=== PATIENT | male | born 1975 | race Native Hawaiian/Other Pacific Islander ===

== ENCOUNTER 2022-09-07 08:12 | Outpatient (CLI) | payer OTHER ==
[~2022-09-07 08:12] MED LIST: ALLERCLEAR10 MG PO; DIAZEPAM10 MG PO; ENDOCET1 TA2 PO; METO25TA4 PO; PAROXETINE40 MG PO; PRED20TA27 PO; ZOLP10TA2 PO
== END 2022-09-07 20:09 | disposition home or self-care (01) ==
LOC: US 08:12
PROVIDERS: ATTEND Nurse Practitioner
DX: R22.9 Localized swelling, mass and lump, unspecified (principal)